=== PATIENT | male | born 1985 | race Caucasian/White ===

== ENCOUNTER 2018-06-14 18:26 | Observation (INO) | payer OTHER ==
[~2018-06-14] VITALS: Ht 170.2 cm; Wt 105.1 kg
[~2018-06-14 18:26] MED LIST: ALBU90OI INH; Augmentin 875-1 EACH PO; Bactrim Ds Tab1 EACH PO; Cipro500 MG PO; Crutch1 EACH MISC; IBUP600 PO; Keflex500 MG PO; LEVFLO500 PO; LEVO750 PO; LISI5; LO-DOSE ASPIRIN81 MG PO; LOSA25 PO; Norco 5-325 Ta1 EACH PO; OXYACE5T PO; Percocet 5-3251 EACH PO; RXOXYACE PO; Vibramycin100 MG PO; Zofran Odt4 MG PO; [UNRECOGNIZED DRUG - REMARK]
[2018-06-14 19:07] LABS: BASOPHILS ABSOLUTE AUTO 0.05 K/mm3 (0.00-0.23); BASOPHILS PERCENT AUTO 1 % (0-2); EOSINOPHILS ABSOLUTE AUTO 0.24 K/mm3 (0.00-0.68); EOSINOPHILS PERCENT AUTO 5 % (0-6); Hematocrit 45.8 % (37.0-53.0); Hemoglobin 14.8 g/dL (13.5-17.5); IMMATURE GRAN ABSOLUTE AUTO 0.02 K/mm3 (0.00-0.10); IMMATURE GRAN PERCENT AUTO 0 % (0-1); LYMPHOCYTES ABSOLUTE AUTO 1.38 K/mm3 (0.84-5.20); LYMPHOCYTES PERCENT AUTO 27 % (21-46); MONOCYTES ABSOLUTE AUTO 0.38 K/mm3 (0.16-1.47); MONOCYTES PERCENT AUTO 7 % (4-13); Mean Corpuscular HGB Conc 32.3 g/dL (31.5-36.5); Mean Corpuscular Volume 90 fL (80-100); Mean Platelet Volume 10.3 fL (9.1-12.4); NEUTROPHILS ABSOLUTE AUTO 3.05 K/mm3 (1.96-9.15); NEUTROPHILS PERCENT AUTO 60 % (41-73); Platelet Count 133 K/mm3 (150-400); RDW Coefficient Variation 14.4 % (11.7-14.2); RDW Standard Deviation 47.8 fL (35.1-46.3); White Blood Cell Count 5.12 K/mm3 (4.00-11.30)
[2018-06-14 19:31] LABS: Alanine Aminotransfer (ALT/SGP 52 U/L (12-78); Albumin, Blood 4.2 g/dL (3.4-5.0); Albumin/Globulin Ratio 1.1 (0.8-1.8); Alk Phos 94 U/L (50-136); Anion Gap 6 mmol/L (6-16); Aspartate Aminotrans (AST/SGOT 41 U/L (12-37); Bilirubin, Total 1.5 mg/dL (0.1-1.0); Blood Urea Nitrogen 15 mg/dL (8-24); CO2, Blood 25 mmol/L (21-32); Calcium, Blood 9.1 mg/dL (8.5-10.1); Chloride, Blood 108 mmol/L (98-108); Creatinine, Blood 0.75 mg/dL (0.60-1.20); Globulin, Blood 3.8 g/dL (2.2-4.0); Glomerular Filtration Rate >60 (60-); Glucose, Blood 87 mg/dL (70-99); Potassium, Blood 4.2 mmol/L (3.5-5.5); Sodium, Blood 139 mmol/L (136-145); Troponin I <0.015 ng/mL (0.000-0.040)
[2018-06-15 04:54] LABS: BASOPHILS ABSOLUTE AUTO 0.05 K/mm3 (0.00-0.23); BASOPHILS PERCENT AUTO 1 % (0-2); EOSINOPHILS ABSOLUTE AUTO 0.31 K/mm3 (0.00-0.68); EOSINOPHILS PERCENT AUTO 6 % (0-6); Hematocrit 45.1 % (37.0-53.0); Hemoglobin 14.7 g/dL (13.5-17.5); IMMATURE GRAN ABSOLUTE AUTO 0.02 K/mm3 (0.00-0.10); IMMATURE GRAN PERCENT AUTO 0 % (0-1); LYMPHOCYTES PERCENT AUTO 28 % (21-46); MONOCYTES ABSOLUTE AUTO 0.42 K/mm3 (0.16-1.47); MONOCYTES PERCENT AUTO 8 % (4-13); Mean Corpuscular HGB 28.5 pg (26.0-34.0); Mean Corpuscular HGB Conc 32.6 g/dL (31.5-36.5); Mean Corpuscular Volume 88 fL (80-100); NEUTROPHILS ABSOLUTE AUTO 2.86 K/mm3 (1.96-9.15); NEUTROPHILS PERCENT AUTO 57 % (41-73); Platelet Count 153 K/mm3 (150-400); RDW Coefficient Variation 14.5 % (11.7-14.2); RDW Standard Deviation 46.4 fL (35.1-46.3); Red Blood Cell Count 5.15 M/mm3 (4.30-5.90); White Blood Cell Count 5.06 K/mm3 (4.00-11.30)
[2018-06-15 05:16] LABS: Anion Gap 7 mmol/L (6-16); Blood Urea Nitrogen 14 mg/dL (8-24); Bun/Creatinine Ratio 17.7 (12.0-20.0); CO2, Blood 26 mmol/L (21-32); Calcium, Blood 8.6 mg/dL (8.5-10.1); Chloride, Blood 108 mmol/L (98-108); Creatinine, Blood 0.79 mg/dL (0.60-1.20); Glomerular Filtration Rate >60 (60-); Glucose, Blood 98 mg/dL (70-99); Potassium, Blood 3.8 mmol/L (3.5-5.5); Sodium, Blood 141 mmol/L (136-145)
[2018-06-15] MEDS ORDERED: Bactrim Ds Tab1 EACH PO (08:38)
[2018-06-15] MEDS ORDERED: LOSARTAN POTAS100 MG PO (08:39)
[2018-06-15 12:09] LABS: Eosinophils-Raw #,Urine 0
[2018-06-15 12:11] LABS: White Blood Cells Urine Not Seen /hpf (0-5)
[2018-06-15] MEDS ORDERED: FURO40 PO (16:41)
[2018-06-15] MEDS ORDERED: POTCHL20ER PO (16:42)
[2018-06-15] MEDS ORDERED: Synthroid25 MCG PO (16:42)
== END 2018-06-15 17:27 | disposition home or self-care (01) ==
LOC: ER 18:26 → MEDS 18:27 → ENPENDDIS 06-15 15:59 → MEDS 06-15 17:27
PROVIDERS: Emergency Medicine; Internal Medicine
DX: I11.0 Hypertensive heart disease with heart failure (principal); I50.33 Acute on chronic diastolic (congestive) heart failure; I10 Essential (primary) hypertension; N45.1 Epididymitis; E03.9 Hypothyroidism, unspecified; R79.89 Other specified abnormal findings of blood chemistry; R21 Rash and other nonspecific skin eruption; Z79.82 Long term (current) use of aspirin; Z79.899 Other long term (current) drug therapy; Z95.1 Presence of aortocoronary bypass graft; Z87.74 Personal history of (corrected) congenital malformations of heart and circulatory system; Z79.01 Long term (current) use of anticoagulants
CPT/HCPCS: 36415; 71046; 80048; 80053; 83880; 84443; 84484; 85025; 87205; 93005; 93010; 93303; 96372; 96374; 96376; 99285-25; G0378; J1650; J1940

== ENCOUNTER 2019-01-26 09:31 | Emergency (ER) | payer OTHER ==
[~2019-01-26] VITALS: Ht 170.2 cm; Wt 98.9 kg
[~2019-01-26 09:31] MED LIST changes: +FURO40 PO; +LOSARTAN POTAS100 MG PO; +POTCHL20ER PO; +Synthroid25 MCG PO
== END 2019-01-26 10:27 | disposition home or self-care (01) ==
LOC: ER 09:31
DX: K42.9 Umbilical hernia without obstruction or gangrene (principal); Z87.891 Personal history of nicotine dependence
CPT/HCPCS: 99283

== ENCOUNTER 2019-02-27 07:26 | Day surgery (SDC) | payer OTHER ==
[~2019-02-27] VITALS: Ht 172.7 cm; Wt 101.3 kg
[~2019-02-27 07:26] MED LIST changes: +Klor-Con 1010 MEQ PO
--- NOTE | 2019-02-27 07:59 | NUR ---
PT ADMITTED TO [facility]. AGREES WITH PLANNED SURGERY. LUNG SOUNDS WITH RHONCHI ON RIGHT SIDE, CLEARED WITH COUGH.
--- NOTE | 2019-02-27 08:57 | NUR ---
DR. CARO AND DR ROGERS INFORMED OF LUNG ASSESSMENT.
--- NOTE | 2019-02-27 12:05 | NUR ---
Discharge instructions reviewed with patient. Patient verbalizes understanding. Copy given to patient to take home. Patient States Post-Procedure ride home has been arranged. Discharged via wheelchair to private car for ride home. Patient up to Ambulate independently. Gait steady. ALL BELONINGS RETURNED TO APTIENT. IV DC'D WITH CATH INTACT AND CLEAR SITE. GAUZE WITH TEGADERM DRESSING TO UMBILICAL REMIANED CDI.
== END 2019-02-27 23:15 | disposition home or self-care (01) ==
LOC: ORSCMMR 07:26 → ORD 09:00 → ORSCMMR 09:00
PROVIDERS: Surgery
PROC: 0WUF0JZ Supplement Abdominal Wall with Synthetic Substitute, Open Approach (ICD-10-PCS; principal; 2019-02-27 09:00)
DX: K42.0 Umbilical hernia with obstruction, without gangrene (principal); I10 Essential (primary) hypertension; E03.9 Hypothyroidism, unspecified; I48.91 Unspecified atrial fibrillation; Z87.891 Personal history of nicotine dependence; E66.9 Obesity, unspecified; Z68.33 Body mass index [BMI] 33.0-33.9, adult; Z79.899 Other long term (current) drug therapy; Z79.82 Long term (current) use of aspirin
CPT/HCPCS: A9270-GY; C1781; J0690; J1100; J1885; J2250; J2405; J2704; J3010; J7120

== ENCOUNTER 2020-09-10 17:49 | Emergency (ER) | payer OTHER ==
[~2020-09-10] VITALS: Ht 170.2 cm; Wt 104.3 kg
== END 2020-09-10 21:25 | disposition home or self-care (01) ==
LOC: ER 17:49
DX: M54.12 Radiculopathy, cervical region (principal); I10 Essential (primary) hypertension; Z79.82 Long term (current) use of aspirin; Z79.899 Other long term (current) drug therapy
CPT/HCPCS: 99283

== ENCOUNTER 2020-10-16 12:34 | Emergency (ER) | payer OTHER ==
[~2020-10-16] VITALS: Ht 170.2 cm; Wt 102.1 kg
[~2020-10-16 12:34] MED LIST changes: +ASPIR 8181 MG PO; -LO-DOSE ASPIRIN81 MG PO
[2020-10-16 13:23] LABS: Source, Urine Clean Catch
[2020-10-16 13:29] LABS: Appearance, Urine Clear (Clear); Bilirubin, Urine Neg (Neg); Blood, Urine 1+ (Neg); Color, Urine Yellow (P-Yellow); Glucose Qualitative, Urine Neg (Neg); Ketones, Urine Neg (Neg); Leukocyte Esterase, Urine Neg (Neg); Nitrite, Urine Neg (Neg); Protein, Urine Neg (Neg); Urobilinogen, Urine NORM (Normal)
[2020-10-16 14:22] LABS: Specific Gravity, Urine 1.015 (1.003-1.022)
[2020-10-16 14:28] LABS: Bacteria Few /hpf; Red Blood Cells, Urine 0-2 /hpf (0-2); Squamous Epithelial Cells Few /hpf (Few); White Blood Cells, Urine 0-2 /hpf (0-5)
[2020-10-16] MEDS ORDERED: OXYC5 PO (14:43)
[2020-10-16] MEDS ORDERED: DOXYCYCLINE HY200 M1 PO (14:43)
== END 2020-10-16 14:52 | disposition home or self-care (01) ==
LOC: ER 12:34
PROVIDERS: Physician Assistant
DX: N45.1 Epididymitis (principal); I10 Essential (primary) hypertension; F17.200 Nicotine dependence, unspecified, uncomplicated; Z79.82 Long term (current) use of aspirin; Z79.899 Other long term (current) drug therapy
CPT/HCPCS: 76870; 81001; 99284-25; A9270

== ENCOUNTER 2020-12-18 18:36 | Inpatient (IN) | payer OTHER ==
[~2020-12-18] VITALS: Ht 170.2 cm; Wt 108.0 kg
[~2020-12-18 18:36] MED LIST changes: +DOXYCYCLINE HY200 M1 PO; +OXYC5 PO
[2020-12-18 19:13] LABS: Source, Urine Clean Catch
[2020-12-18 19:35] LABS: Bilirubin, Urine Neg (Neg); Blood, Urine 1+ (Neg); Glucose Qualitative, Urine Neg (Neg); Ketones, Urine Neg (Neg); Leukocyte Esterase, Urine Neg (Neg); Nitrite, Urine Neg (Neg); Protein, Urine Neg (Neg); Urobilinogen, Urine NORM (Normal)
[2020-12-18 19:37] LABS: BASOPHILS ABSOLUTE AUTO 0.05 K/mm3 (0.00-0.23); BASOPHILS PERCENT AUTO 1 % (0-2); EOSINOPHILS ABSOLUTE AUTO 0.13 K/mm3 (0.00-0.68); EOSINOPHILS PERCENT AUTO 2 % (0-6); Hematocrit 47.8 % (37.0-53.0); IMMATURE GRAN ABSOLUTE AUTO 0.01 K/mm3 (0.00-0.10); IMMATURE GRAN PERCENT AUTO 0 % (0-1); LYMPHOCYTES PERCENT AUTO 18 % (21-46); MONOCYTES ABSOLUTE AUTO 0.58 K/mm3 (0.16-1.47); MONOCYTES PERCENT AUTO 10 % (4-13); Mean Corpuscular HGB 29.9 pg (26.0-34.0); Mean Corpuscular HGB Conc 33.5 g/dL (31.5-36.5); Mean Corpuscular Volume 89 fL (80-100); Mean Platelet Volume 10.8 fL (9.1-12.4); NEUTROPHILS ABSOLUTE AUTO 3.83 K/mm3 (1.96-9.15); NEUTROPHILS PERCENT AUTO 68 % (41-73); Platelet Count 122 K/mm3 (150-400); RDW Coefficient Variation 14.6 % (11.7-14.2); RDW Standard Deviation 47.8 fL (35.1-46.3); Red Blood Cell Count 5.35 M/mm3 (4.30-5.90)
[2020-12-18 19:52] LABS: Appearance, Urine Clear (Clear); Bacteria Few /hpf; Color, Urine Yellow (P-Yellow); Red Blood Cells, Urine 0-2 /hpf (0-2); Squamous Epithelial Cells Rare /hpf (Few); White Blood Cells, Urine 0-2 /hpf (0-5)
[2020-12-18 19:54] LABS: Alanine Aminotransfer (ALT/SGP 42 U/L (12-78); Albumin, Blood 4.2 g/dL (3.4-5.0); Albumin/Globulin Ratio 1.1 (0.8-1.8); Alk Phos 129 U/L (50-136); Anion Gap 6 mmol/L (6-16); Aspartate Aminotrans (AST/SGOT 54 U/L (12-37); Bilirubin, Total 6.1 mg/dL (0.1-1.0); Blood Urea Nitrogen 10 mg/dL (8-24); Bun/Creatinine Ratio 12.4 (12.0-20.0); CO2, Blood 26 mmol/L (21-32); Calcium, Blood 9.3 mg/dL (8.5-10.1); Chloride, Blood 107 mmol/L (98-108); Creatinine, Blood 0.81 mg/dL (0.60-1.20); Globulin, Blood 3.8 g/dL (2.2-4.0); Glomerular Filtration Rate >60 (60-); Glucose, Blood 119 mg/dL (70-99); Potassium, Blood 3.3 mmol/L (3.5-5.5); Sodium, Blood 139 mmol/L (136-145); Troponin I <0.015 ng/mL (0.000-0.040)
[2020-12-18 22:33] LABS: Magnesium, Blood 1.9 mg/dL (1.6-2.4); Phosphorus, Blood 2.9 mg/dL (2.5-4.9)
[2020-12-18 22:39] LABS: International Normalized Ratio 1.13
[2020-12-18] MEDS ORDERED: FURO20 PO (23:21)
[2020-12-19 04:35] LABS: BASOPHILS ABSOLUTE AUTO 0.08 K/mm3 (0.00-0.23); BASOPHILS PERCENT AUTO 1 % (0-2); EOSINOPHILS ABSOLUTE AUTO 0.25 K/mm3 (0.00-0.68); EOSINOPHILS PERCENT AUTO 4 % (0-6); Hematocrit 47.2 % (37.0-53.0); Hemoglobin 15.8 g/dL (13.5-17.5); IMMATURE GRAN ABSOLUTE AUTO 0.02 K/mm3 (0.00-0.10); IMMATURE GRAN PERCENT AUTO 0 % (0-1); LYMPHOCYTES ABSOLUTE AUTO 1.03 K/mm3 (0.84-5.20); LYMPHOCYTES PERCENT AUTO 18 % (21-46); MONOCYTES ABSOLUTE AUTO 0.56 K/mm3 (0.16-1.47); MONOCYTES PERCENT AUTO 10 % (4-13); Mean Corpuscular HGB 30.1 pg (26.0-34.0); Mean Corpuscular HGB Conc 33.5 g/dL (31.5-36.5); Mean Corpuscular Volume 90 fL (80-100); NEUTROPHILS ABSOLUTE AUTO 3.72 K/mm3 (1.96-9.15); NEUTROPHILS PERCENT AUTO 66 % (41-73); Platelet Count 131 K/mm3 (150-400); RDW Coefficient Variation 14.6 % (11.7-14.2); RDW Standard Deviation 48.3 fL (35.1-46.3); Red Blood Cell Count 5.25 M/mm3 (4.30-5.90); White Blood Cell Count 5.66 K/mm3 (4.00-11.30)
[2020-12-19 05:00] LABS: Alanine Aminotransfer (ALT/SGP 40 U/L (12-78); Albumin, Blood 3.9 g/dL (3.4-5.0); Alk Phos 132 U/L (50-136); Anion Gap 9 mmol/L (6-16); Aspartate Aminotrans (AST/SGOT 50 U/L (12-37); Blood Urea Nitrogen 11 mg/dL (8-24); Bun/Creatinine Ratio 15.4 (12.0-20.0); CO2, Blood 27 mmol/L (21-32); Calcium, Blood 9.4 mg/dL (8.5-10.1); Chloride, Blood 102 mmol/L (98-108); Creatinine, Blood 0.71 mg/dL (0.60-1.20); Globulin, Blood 3.9 g/dL (2.2-4.0); Glomerular Filtration Rate >60 (60-); Glucose, Blood 103 mg/dL (70-99); Potassium, Blood 3.2 mmol/L (3.5-5.5); Sodium, Blood 138 mmol/L (136-145); Total Protein, Blood 7.8 g/dL (6.4-8.2)
--- NOTE | 2020-12-19 06:45 | NUR ---
SHIFT SUMMARY PT ARRIVED FROM ER APPROXIMATELY @ 2330; VIA STRETCHER AND SELF TRANSFERED TO BED; PT A&O X 4; DENIES CHEST PAIN; O2 SATS >93 ON 2L NC; DYSPNEA NOTED W/ EXERSION; VSS; NSR NOTED ON TELE W/ HR 80'S; PT STATES HES HAS HX OF HEART CONDITION FROM AND HAD A FEW SURGERIES; MAGNESIUM GIVEN, AND SECOND BAG OF POTASSIUM CONTINUES TO INFUSE, TITRATED FOR PT TO TOLERATE; INDEPENDENT TO BATHROOM; STATES HE LIVES W/ "LADY FRIEND"; EDUCATED ON FALL PREVENTION, UNIT SAFETY AND PROTOCOL; BELONGINGS AND CALL LIGHT IN REACH; BED IN LOWEST POSITION; WILL CONTINUE TO MONITOR CLOSELY UNTIL HAND OFF TO DAY SHIFT RN.
--- NOTE | 2020-12-19 09:20 | NUR ---
ECHOCARDIOGRAM COMPLETE
[2020-12-19] MEDS ORDERED: ATOR40TA PO (13:41)
[2020-12-19] MEDS ORDERED: POTA10T PO (13:42)
--- NOTE | 2020-12-19 14:24 | NUR ---
DISCHARGE PT HAS BEEN PREPARED AND APPROVED FOR DISCHARGE. PT WAS GIVEN EDUCATION IN REGARDS TO NEW MEDICATIONS, HEART HEALTHY EATING AND A DAILY WEIGHT RECORD. PT WAS ENCOURAGED TO PERFORM DAILY WEIGHTS TO MONINTOR FLUID BUILD UP. NEW MEDICATION PRESCRIPTIONS WERE SENT TO [facility]. IV WAS REMOVED AND TELE WAS REMOVED. PT WAS ABLE TO DISCHARGE AND WALK TO THE DOOR ACCOMPANIED BY MARLIN LONDON AT 1425. VS STABLE, PT ON RA AND ENCOURAGED TO GO TO FOLLOW UP APPOINTMENTS MARLIN LONDON ESTABLISHED NEW PATIENT CARE AT [facility] FOR THE PT.
== END 2020-12-19 14:30 | disposition home or self-care (01) | DRG 291 ==
LOC: ER 18:36 → PCU 22:31
PROVIDERS: Nurse Practitioner Acute Care; Physician Assistant; ADMIT Internal Medicine
DX: I11.0 Hypertensive heart disease with heart failure (principal); J96.01 Acute respiratory failure with hypoxia; Q22.4 Congenital tricuspid stenosis; R17 Unspecified jaundice; I50.9 Heart failure, unspecified; E87.6 Hypokalemia; F10.10 Alcohol abuse, uncomplicated; E66.01 Morbid (severe) obesity due to excess calories; R79.89 Other specified abnormal findings of blood chemistry; Z68.38 Body mass index [BMI] 38.0-38.9, adult; Z79.82 Long term (current) use of aspirin; Z87.891 Personal history of nicotine dependence; Z79.899 Other long term (current) drug therapy; Z98.890 Other specified postprocedural states; Z86.79 Personal history of other diseases of the circulatory system
CPT/HCPCS: 36415; 71045; 76705; 80053; 81001; 83735; 83880; 84100; 84132; 84484; 85025; 85610; 85730; 93005; 93010; 93303; 96374; 99285-25; A9270; J1940; J3475; J3480; J7050

== ENCOUNTER 2021-07-04 15:11 | Inpatient (IN) | payer OTHER ==
[~2021-07-04] VITALS: Ht 170.2 cm; Wt 114.3 kg
[~2021-07-04 15:11] MED LIST changes: +ATOR40TA PO; +POTA10T PO
[2021-07-04 15:54] LABS: PCO2 Arterial 28.9 mmHg (35-45); PO2 Arterial 50.6 mmHg (80-100); pH Blood Arterial 7.51 (7.35-7.45)
[2021-07-04 16:27] LABS: BASOPHILS ABSOLUTE AUTO 0.08 K/mm3 (0.00-0.23); BASOPHILS PERCENT AUTO 1 % (0-2); EOSINOPHILS ABSOLUTE AUTO 0.31 K/mm3 (0.00-0.68); EOSINOPHILS PERCENT AUTO 3 % (0-6); Hematocrit 46.6 % (37.0-53.0); Hemoglobin 16.2 g/dL (13.5-17.5); IMMATURE GRAN ABSOLUTE AUTO 0.11 K/mm3 (0.00-0.10); IMMATURE GRAN PERCENT AUTO 1 % (0-1); LYMPHOCYTES ABSOLUTE AUTO 0.86 K/mm3 (0.84-5.20); LYMPHOCYTES PERCENT AUTO 9 % (21-46); MONOCYTES ABSOLUTE AUTO 0.81 K/mm3 (0.16-1.47); MONOCYTES PERCENT AUTO 9 % (4-13); Mean Corpuscular HGB 29.8 pg (26.0-34.0); Mean Corpuscular HGB Conc 34.8 g/dL (31.5-36.5); Mean Corpuscular Volume 86 fL (80-100); NEUTROPHILS ABSOLUTE AUTO 7.39 K/mm3 (1.96-9.15); NEUTROPHILS PERCENT AUTO 77 % (41-73); Platelet Count 97 K/mm3 (150-400); RDW Coefficient Variation 14.6 % (11.7-14.2); RDW Standard Deviation 45.7 fL (35.1-46.3); Red Blood Cell Count 5.43 M/mm3 (4.30-5.90); White Blood Cell Count 9.56 K/mm3 (4.00-11.30)
[2021-07-04 16:31] LABS: Alanine Aminotransfer (ALT/SGP 102 U/L (12-78); Albumin, Blood 2.9 g/dL (3.4-5.0); Albumin/Globulin Ratio 0.6 (0.8-1.8); Alk Phos 116 U/L (50-136); Anion Gap 10 mmol/L (6-16); Aspartate Aminotrans (AST/SGOT 112 U/L (12-37); Bilirubin, Total 5.9 mg/dL (0.1-1.0); Blood Urea Nitrogen 15 mg/dL (8-24); Bun/Creatinine Ratio 20.6 (12.0-20.0); CO2, Blood 22 mmol/L (21-32); Calcium, Blood 8.5 mg/dL (8.5-10.1); Chloride, Blood 95 mmol/L (98-108); Creatinine, Blood 0.73 mg/dL (0.60-1.20); Globulin, Blood 5.1 g/dL (2.2-4.0); Glomerular Filtration Rate >60 (60-); Glucose, Blood 87 mg/dL (70-99); Potassium, Blood 4.1 mmol/L (3.5-5.5); Sodium, Blood 127 mmol/L (136-145); Troponin I 0.076 ng/mL (0.000-0.040)
[2021-07-04 17:01] LABS: SARS-Cov-2 (COVID-19) PCR, MMC NEGATIVE (NEGATIVE)
[2021-07-04 19:00] LABS: CHOL/HDL RATIO 6.1; Cholesterol 98 mg/dL (50-200); HDL Cholesterol 16 mg/dL (>39); Low Density Lipoprotein Chol 48 mg/dL (0-110); Triglycerides 171 mg/dL (30-140); Very Low Density Lipoprot Chol 34 mg/dL (6-28)
[2021-07-04 20:30] LABS: Source, Urine Clean Catch
[2021-07-04 20:33] LABS: Appearance, Urine Clear (Clear); Blood, Urine 3+ (Neg); Color, Urine Amber (P-Yellow); Glucose Qualitative, Urine Neg (Neg); Ketones, Urine Neg (Neg); Leukocyte Esterase, Urine 1+ (Neg); Nitrite, Urine Pos (Neg); Protein, Urine 3+ (Neg); Urobilinogen, Urine 3+ (Normal)
[2021-07-04 20:35] LABS: Bilirubin, Urine 3+ (Neg)
[2021-07-04 20:39] LABS: Bacteria Many /hpf; Hyaline Casts 0-2 /lpf (0-2)
[2021-07-04 20:40] LABS: Red Blood Cells, Urine 0-2 /hpf (0-2); Squamous Epithelial Cells Rare /hpf (Few)
[2021-07-04 22:10] LABS: Influenza A Negative (NEGATIVE); Influenza B Negative (NEGATIVE)
[2021-07-05 00:09] LABS: CPK Creatine Kinase 402 U/L (39-308); Troponin I 0.149 ng/mL (0.000-0.040)
[2021-07-05 00:23] LABS: Creatine Kinase MB <1.0 ng/mL (0.0-3.6)
[2021-07-05 00:24] LABS: Creatine Kinase MB Index Unable to Calculate (0.0-4.0)
--- NOTE | 2021-07-05 00:31 | NUR ---
DR KELLY WAS NOTIFED THE PATIENT WAS SINUS TACHYCARDIC IN THE 120S AND THAT HE HAD GONE UP TO 160S-170S BUT DID NOT SUSTAIN. RN NOTIFED THE DOCTOR THE PATIENT'S O2 DEMAND WAS INCREASING AND HIS LUNGS DID NOT SOUND GOOD. LASIX WAS GIVEN BUT THE PATIENT STILL HAD SOME FLUIDS IN HIS LUNGS. HIS URINE WAS ORANGE. DR KELLY AND RN TALKED ON THE PHONE THEN DR KELLY STATED HE WILL COME UP TO THE FLOOR TO SEE THE PAIENT. RN MET MD AT THE BEDSIDE. AFTER ASSESSING THE PATIENT DR KELLY STATED RN SHOULD CONTINUE TO MONITOR PATIENT AND INFORM HIM OF ANY CHANGED WITH THE PATIENT AND IF HIS HEART RATE GOES UP AND STAYS UP.
--- NOTE | 2021-07-05 07:21 | NUR ---
SHFIT SUMMARY PATIENT IS RESTING IN BED COMFORTABLY. BED IS IN LOW POSITION. CALL LIGHT IS IN REACH. PATIENT WAS A NEW ADMIT TO THE FLOOR AT SHIFT CHANGE. HE IS ALERT AND ORIENTED X4. THE PATIENT WAS ORIENTED TO THE FLOOR AND ROOM. THE PATIENT CAME UP TO THE FLOOR ON 10L OXYMIZER BUT WAS NOT SATURATING WELL HE WAS ABLE TO MAINTAIN 92% BUT HE STARTED TO DESATURATE TO 85%. THE PATIENT WAS THEN PUT ON CPAP BUT STATED HE FELT LIKE HE WAS SUFFOCATING ANXIETY MEDICATION WAS ORFFERED BUT PT REFUSED. THEN HE WENT BACK ON THE OXYMIZER BUT WAS NOT SATURATING WELL. RT WAS CALLED AND THE PATIENT WAS PLACED ON AIRVO 55L AT 100% AND WAS MAINTING OXYGEN SATRUATION OF 90% AND ABOVE. THE DOCTOR WAS CALLED TO GET HIS LASIX STARTED LAST NIGHT DUE TO HIS DIFFICULTY BREATHING. THE PATIENT DID COMPLAIN OF PAIN AND WAS MEDICATED WITH HIS PRN PAIN MEDICATION WITH SOME RELIEF. THE PATIENT WAS SINUS TACHYCARDIC DURING THE NIGHT IN THE 120S THE DOCTOR WAS NOTIED AND RN WAS INSTURCTED TO OBSERVE. WILL CONTINUE TO MONITOR. REPORT GIVEN TO DAY SHIFT RN.
[2021-07-05 08:18] LABS: BASOPHILS ABSOLUTE AUTO 0.07 K/mm3 (0.00-0.23); BASOPHILS PERCENT AUTO 1 % (0-2); EOSINOPHILS ABSOLUTE AUTO 0.28 K/mm3 (0.00-0.68); EOSINOPHILS PERCENT AUTO 3 % (0-6); Hematocrit 45.2 % (37.0-53.0); Hemoglobin 15.7 g/dL (13.5-17.5); IMMATURE GRAN ABSOLUTE AUTO 0.13 K/mm3 (0.00-0.10); IMMATURE GRAN PERCENT AUTO 1 % (0-1); LYMPHOCYTES ABSOLUTE AUTO 1.13 K/mm3 (0.84-5.20); LYMPHOCYTES PERCENT AUTO 10 % (21-46); MONOCYTES ABSOLUTE AUTO 1.03 K/mm3 (0.16-1.47); MONOCYTES PERCENT AUTO 9 % (4-13); Mean Corpuscular HGB 29.7 pg (26.0-34.0); Mean Corpuscular HGB Conc 34.7 g/dL (31.5-36.5); Mean Corpuscular Volume 86 fL (80-100); Mean Platelet Volume 12.3 fL (9.1-12.4); NEUTROPHILS ABSOLUTE AUTO 8.43 K/mm3 (1.96-9.15); NEUTROPHILS PERCENT AUTO 76 % (41-73); Platelet Count 105 K/mm3 (150-400); RDW Coefficient Variation 14.2 % (11.7-14.2); RDW Standard Deviation 44.4 fL (35.1-46.3); Red Blood Cell Count 5.28 M/mm3 (4.30-5.90); White Blood Cell Count 11.07 K/mm3 (4.00-11.30)
[2021-07-05 08:37] LABS: Alanine Aminotransfer (ALT/SGP 92 U/L (12-78); Albumin, Blood 2.7 g/dL (3.4-5.0); Albumin/Globulin Ratio 0.5 (0.8-1.8); Alk Phos 123 U/L (50-136); Anion Gap 8 mmol/L (6-16); Aspartate Aminotrans (AST/SGOT 103 U/L (12-37); Bilirubin, Total 5.8 mg/dL (0.1-1.0); Blood Urea Nitrogen 18 mg/dL (8-24); Bun/Creatinine Ratio 22.2 (12.0-20.0); CO2, Blood 24 mmol/L (21-32); Calcium, Blood 8.5 mg/dL (8.5-10.1); Chloride, Blood 94 mmol/L (98-108); Creatinine, Blood 0.81 mg/dL (0.60-1.20); Glomerular Filtration Rate >60 (60-); Glucose, Blood 88 mg/dL (70-99); Potassium, Blood 3.9 mmol/L (3.5-5.5); Sodium, Blood 126 mmol/L (136-145); Total Protein, Blood 7.7 g/dL (6.4-8.2)
[2021-07-05 08:40] LABS: CPK Creatine Kinase 319 U/L (39-308); Troponin I 0.072 ng/mL (0.000-0.040)
[2021-07-05 08:55] LABS: Creatine Kinase MB <1.0 ng/mL (0.0-3.6); Creatine Kinase MB Index Unable to Calculate (0.0-4.0)
--- NOTE | 2021-07-05 10:16 | NUR ---
AM NOTE PT ALERT AND ORIENT X 4. SPO2 91% VIA ARIVO 55L/MIN @ 90%. PT DENIES CHEST PAIN/PRESSURE. PT DENIES NAUSEA/VOMITTING. PT REPORTS ALWAYS HAVING COUGH/NEEDING TO CLEAR THROAT. PER PATIENT REPORT, PT AMBULATES WITH EASE AT HOME PER REPORT FROM PATIENT. IV LOCATED IN LEFT WRIST AND LEFT AC, SALINE LOCKED. 1000ML FLUID RESTRICTION IMPLIMENTED. BEDSIDE URINAL BEING USED. CALL LIGHT IN REACH, WILL CONTINUE TO MONITOR.
[2021-07-05 15:12] LABS: Albumin, Blood 2.3 g/dL (3.4-5.0); Anion Gap 8 mmol/L (6-16); Blood Urea Nitrogen 23 mg/dL (8-24); CO2, Blood 25 mmol/L (21-32); Calcium, Blood 8.3 mg/dL (8.5-10.1); Chloride, Blood 95 mmol/L (98-108); Creatinine, Blood 1.21 mg/dL (0.60-1.20); Glomerular Filtration Rate >60 (60-); Glucose, Blood 105 mg/dL (70-99); Phosphorus, Blood 2.9 mg/dL (2.5-4.9); Potassium, Blood 3.7 mmol/L (3.5-5.5); Sodium, Blood 128 mmol/L (136-145)
[2021-07-05 16:45] LABS: International Normalized Ratio 1.26
--- NOTE | 2021-07-05 18:36 | NUR ---
SHIFT SUMMARY PT REMAINS ALERT AND ORIENTED X4. SPO2 RANGING 86-92 VIA 10 L OXIMIZER, PT DESATURATES W/ EXERTION/SITTING ON EDGE OF BED SPO2 WILL DIP TO 86 BUT PATIENT RECOVERS QUICKLY. BLOOD PRESSURES HAVE BEEN SOFT AND DOCTOR BURDEN HAS BEEN MADE AWARE THROUGHOUT SHIFT OF DOWNTREND IN BP. ORDERS FOR NS GIVEN EARLIER DURING SHIFT AND IS STILL INFUSING TO COMPLETE ORDERED 500 ML VOLUME. STAT EKG DONE 1830 AND IS NOW IN CHART REFERANCE FOR REGISTERED MAIL CLERK NURSE/DOCTOR. WILL PASS INFORMATION REGARDING LOW BLOOD PRESSURE TREND. PATIENT HAS DENIED CHEST PAIN/PRESSURE THROUGHOUT SHIFT. SKIN APPEARANCE IS SLIGHTLY YELLOW, SCABS SCATTERED ON BILATERAL LOWER EXTREMETIES HAVE PHOTOS IN CHART FOR REFERANCE/MONITORING. WILL CONTINUE TO MONITOR UNTIL REPORT GIVEN.
--- NOTE | 2021-07-05 18:55 | NUR ---
CARE NOTE THIS NURSE CALLED DR DAUGHERTY ABOUT BP AT APPROX. 1840. INSTRUCTIONS FOR EKG AND TROPONIN ORDER GIVEN, WILL ALSO CALL NIGHT DOCTOR AND ASK TO COME ASSESS PATIENT. WILL PASS ON TO REPORT.
--- NOTE | 2021-07-05 19:02 | NUR ---
CARE NOTE THIS NURSE CALLED DR ROOT WHO IS HOSPITAL WELLNESS COORDINATOR PHYSICIAN TO UPDATE ABOUT BLOOD PRESSURE TREND WELL TEMPERATURE AT 1900. WILL PASS ON INFORMATION TO NIGHT NURSE WELL.
--- NOTE | 2021-07-05 19:35 | NUR ---
SPOKE WITH DR ROOT AND DR GLEZ RE: HYPOTENSION DESPITE FLUID BOLUS GIVEN ON DAYS WELL TROP 0.051. ALBUMIN 25GM GIVEN PER DR FLORES ORDER, JUST NOW GAVE MIDOSDRINE 10MG PER DR GALLEGOS ORDER. UPDATED HIM ON PT CONDITION, SEE VS FLOW SHEET, BP'S REMAIN 70/40'S. PT DROWSY, ORIENTED X4. MARLIN GARCIA
--- NOTE | 2021-07-05 21:08 | NUR ---
[address] KELLY TO UPDATE ON PT CONDITION, BP'S REMAIN 70/40 W/ MAP IN THE 50'S. ORDERS REC'D. NELLIE RN
--- NOTE | 2021-07-05 21:18 | NUR ---
REPORT RECEIVED FROM JASEN ISAAC. PT TO BE TRANSFERRED FROM PCU 15 TO ICU-5. AWAITING PT'S ARRIVAL.
--- NOTE | 2021-07-05 21:32 | NUR ---
2114 PT TRANSFERED TO CIU 5, REPORT TO RECIEVING RN. SAL
--- NOTE | 2021-07-05 22:16 | NUR ---
2124- PT ADMITTED INTO ICU-5. PT AAOX4, DIAPHORETIC, DENIES ANY PAIN OR DISTRESS. PT IS NSR ON THE MONITOR. PT IS ADMITTED INTO ICU DUE TO HYPOTENSION. SEE VITAL FLOWSHEET. PT ON 10L VIA N/C. PT O2 SATURATION BETWEEN 87-92%. SEE SHIFT ASSESSMENT. WILL CONTINUE TO MONITOR.
--- NOTE | 2021-07-06 01:12 | NUR ---
YOLIS RETURNED CALL, NOTIFIED OF PT'S TRANSFER TO ICU AND UPDATED ON PT'S STATUS. ALL QUESTIONS ANSWERED.
[2021-07-06 04:29] LABS: BASOPHILS ABSOLUTE AUTO 0.11 K/mm3 (0.00-0.23); BASOPHILS PERCENT AUTO 1 % (0-2); EOSINOPHILS ABSOLUTE AUTO 0.69 K/mm3 (0.00-0.68); EOSINOPHILS PERCENT AUTO 5 % (0-6); Hematocrit 44.5 % (37.0-53.0); Hemoglobin 15.1 g/dL (13.5-17.5); IMMATURE GRAN ABSOLUTE AUTO 0.26 K/mm3 (0.00-0.10); IMMATURE GRAN PERCENT AUTO 2 % (0-1); LYMPHOCYTES ABSOLUTE AUTO 1.23 K/mm3 (0.84-5.20); LYMPHOCYTES PERCENT AUTO 9 % (21-46); MONOCYTES ABSOLUTE AUTO 0.99 K/mm3 (0.16-1.47); MONOCYTES PERCENT AUTO 7 % (4-13); Mean Corpuscular HGB 29.5 pg (26.0-34.0); Mean Corpuscular HGB Conc 33.9 g/dL (31.5-36.5); Mean Corpuscular Volume 87 fL (80-100); Mean Platelet Volume 12.6 fL (9.1-12.4); NEUTROPHILS ABSOLUTE AUTO 11.11 K/mm3 (1.96-9.15); NEUTROPHILS PERCENT AUTO 77 % (41-73); Platelet Count 174 K/mm3 (150-400); RDW Coefficient Variation 14.7 % (11.7-14.2); RDW Standard Deviation 46.9 fL (35.1-46.3); Red Blood Cell Count 5.11 M/mm3 (4.30-5.90); White Blood Cell Count 14.39 K/mm3 (4.00-11.30)
[2021-07-06 04:53] LABS: Albumin, Blood 2.4 g/dL (3.4-5.0); Amylase, Blood 158 U/L (25-115); Anion Gap 8 mmol/L (6-16); Blood Urea Nitrogen 33 mg/dL (8-24); Bun/Creatinine Ratio 17.6 (12.0-20.0); CO2, Blood 26 mmol/L (21-32); Chloride, Blood 96 mmol/L (98-108); Creatinine, Blood 1.88 mg/dL (0.60-1.20); Glomerular Filtration Rate 41 (60-); Glucose, Blood 106 mg/dL (70-99); Magnesium, Blood 2.7 mg/dL (1.6-2.4); Phosphorus, Blood 4.2 mg/dL (2.5-4.9); Potassium, Blood 3.6 mmol/L (3.5-5.5); Sodium, Blood 130 mmol/L (136-145)
--- NOTE | 2021-07-06 06:08 | NUR ---
SHIFT SUMMARY NO ACUTE EVENTS OVERNIGHT. PT ADMITTED INTO ICU AT 2124. PT AAOX4, PT SLEPT ON AND OFF THROUGHOUT THE NIGHT. PT DIAPHORETIC, BS CHECKED AND NO HYPOGYLCEMIA NOTED. PT IN JUNCTIONAL RHYTHM (80S-90S), PT TRANSFERRED TO ICU DUE TO HYPOTENSION. LEVOPHED STARTED, CURRENTLY AT 6MCG/MIN. PT ON NONREBREATHER MASK AT 12L, PT SATS 95-97% ON NONREBREATHER. RESPIRATIONS EVEN AND UNLABORED. ABD DISTENDED, BS ACTIVE. NO BM THIS SHIFT. PT VOIDED 450ML OF URINE. SMALL PAPULES NOTED ON PATIENTS LEGS, PAPULES HAVE NOT GROWN IN SIZE. PT IS CURRENTLY RESTING IN BED. NO DISTRESS NOTED. REPORT TO BE GIVEN TO DAY SHIFT RN.
--- NOTE | 2021-07-06 07:38 | NUR ---
AM NOTE... ASSUMED CARE OF PT AT 0700, PT IS A&Ox4 AWAKE AND ALERT. PT IS IN SR W/BBB IN THE 90'S, HE IS ON 8MCG/MIN OF LEVOPHED WITH MAPS >60. NO EDEMA NOTED ON ASSESSMENT, THE PT'S NAIL BEDS ARE DUSKY BUT PULSES ARE PALPABLE. PT IS ON 10L OXYMIZER WITH O2 SATS >90% L/S COARSE WITH SCATTERED RHONCHI. ABD IS LARGE AND SOFT TO PALP. PT USES THE URNIAL AND VOIDED 400MLS OF DARK [place] URINE THIS SHIFT. PT DENIES ANY CHEST PAIN. WILL CONTINUE TO MONITOR.
--- NOTE | 2021-07-06 09:31 | NUR ---
PT UPDATE... AT 0835 THE PT'S BP DROPPED WITH MAPS <60, THE PT WAS NOTED TO BE MORE LETHARGIC AND C/O OF BEING "SUPER COLD." UPON ASSESSMENT IT WAS NOTED THE PT HAD INCREASED RHONCHI IN HIS LUNGS AND SCATTERED WHEEZES, THE PT CONTINUES TO BE ON 10L OXYMIZER WITH O2 SATS>90%. THE PT'S NAIL BEDS ARE MORE DUSKY TO ALMOST PURPLE. THE LEVOPHED WAS TITRATED UP FROM 8MCG TO 16MCG/MIN TO KEEP THE PT'S MAPS >60. THE PT DENIES CHEST PAIN DURING THIS TIME. THE PT'S HR INCREASED FROM THE 90'S TO 110'S. DR. DAUGHERTY WAS NOTIFIED AND CAME TO THE BED SIDE, A STAT EKG, CHEST XRAY, PICC LINE WERE ORDERED. DR. DAUGHERTY CONSULTED DR. ANDRADE WHO ORDERED A STAT ECHO. PT IS C/O OF A HEADACHE AND IS STARTING TO HAVE A DRY COUGH. WILL CONTINUE TO MONITOR.
--- NOTE | 2021-07-06 16:13 | NUR ---
PT UPDATE.... PT'S CONDITION HAS IMPROVED SINCE THIS AM, THE PT'S LEVOPHED WAS AT 16MCG/MIN SINCE APROX 1030. AT 1510 THE PT'S LEVOPHED NEEDS WERE STARTING TO DECREASE. CURRENTLY THE PT'S LEVOPHED IS AT 2MCG/MIN WITH MAPS >65. THE PT'S COLOR HAS IMPROVED AND HE IS NOT LETHARGIC. THE PLAN OF CARE IS TO TRANSFER THE PT TO [facility] SOON A BED IS AVAILABLE. THE PT'S IS AT THE BEDSIDE AND WAS UPDATED BY DR. ANDRADE ON THE PT'S PLAN OF CARE. THE PT CONTINUES TO BE ON 10L NC WITH O2 SATS >89%. CALL LIGHT IN REACH WILL CONTINUE TO MONITOR.
--- NOTE | 2021-07-06 17:27 | NUR ---
PT TRANSFER... PT [facility] TRANSFER TO [facility], VS STABLE, LEVOPHED GTT RUNNING AT 4MCG/MIN WITH MAPS >65. PT CONTINUES ON 10L OXYMIZER. ALL OF PT'S BELONGINGS PACKED AND SENT WITH THE PT. THE PT'S WAS NOTIFIED OF THE TRANSFER.
== END 2021-07-06 17:35 | disposition short-term general hospital (02) | DRG 871 ==
LOC: ER 15:11 → PCU 18:11 → ICUE 18:11 → PCU 19:40 → ICUE 07-05 21:25
PROVIDERS: Emergency Medicine; Family Medicine; Physician Assistant; ADMIT Internal Medicine
PROC: 02HV33Z Insertion of Infusion Device into Superior Vena Cava, Percutaneous Approach (ICD-10-PCS; principal; 2021-07-05)
PROC: 3E043XZ Introduction of Vasopressor into Central Vein, Percutaneous Approach (ICD-10-PCS; 2021-07-05)
DX: A41.9 Sepsis, unspecified organism (principal); J96.01 Acute respiratory failure with hypoxia; J18.9 Pneumonia, unspecified organism; I50.23 Acute on chronic systolic (congestive) heart failure; R57.9 Shock, unspecified; N17.9 Acute kidney failure, unspecified; E87.1 Hypo-osmolality and hyponatremia; Z20.822 Contact with and (suspected) exposure to COVID-19; I11.0 Hypertensive heart disease with heart failure; A08.4 Viral intestinal infection, unspecified; E86.0 Dehydration; I48.91 Unspecified atrial fibrillation; E80.6 Other disorders of bilirubin metabolism; F10.20 Alcohol dependence, uncomplicated; K70.30 Alcoholic cirrhosis of liver without ascites; F17.210 Nicotine dependence, cigarettes, uncomplicated; Z98.890 Other specified postprocedural states; Z79.82 Long term (current) use of aspirin; Z79.899 Other long term (current) drug therapy
CPT/HCPCS: 36415; 36569; 36600; 71045; 71260; 74176; 76705; 80053; 80061; 80069; 81001; 82150; 82550; 82553; 82784; 82803; 82947; 83605; 83690; 83735; 83880; 84484; 85025; 85610; 85730; 87040; 87070; 87086; 87205; 87804; 93005; 93010; 94660; 94762; 99285-25; A9270; C1751; C8929; J0456; J0696; J1650; J1940; J2020; J3010; J7030; J7040; J7050; J7060; P9046; Q9957; Q9967; U0004